=== PATIENT | male | born 1950 | race Caucasian/White ===

== ENCOUNTER 2022-06-07 19:11 | Observation (INO) ==
[2022-06-07 20:27] LABS: Bilirubin,Urine Negative (Negative); Blood,Urine Negative (Negative); Clarity,Urine Clear (Clear); Color,Urine Yellow (Yellow); Glucose,Urine (UA) Normal (Normal); Ketones,Urine Negative (Negative); Leukocyte Esterase,Urine Negative (Negative); Mucus,Urine Moderate per lpf (None-Few); Nitrite,Urine Negative (Negative); PH,Urine 5.5 pH Units (5.0-8.0); Protein,Urine 30 mg/dL (Neg-Trace); Specific Gravity,Urine 1.027 (1.010-1.025); Urobilinogen,Urine Normal (Normal); WBC,Urine 0-3 per hpf (0-3)
[2022-06-07 20:33] LABS: Basophils % 0.3 %; Hematocrit 49.1 % (37.5-50.1); Hemoglobin 16.8 g/dL (12.9-16.9); Immature Granulocytes % 0.4 % (0-4); Lymphocytes # 0.8 K/mcL (0.6-4.6); Lymphocytes % 5.2 %; Mean Corpuscular HGB Conc 34.2 g/dL (31.6-35.5); Mean Corpuscular Hemoglobin 29.8 pg (28.0-33.3); Mean Corpuscular Volume 87.2 fL (83.0-100.0); Mean Platelet Volume 10.6 fL (9.4-12.4); Monocytes % 6.7 %; Neutrophils # 13.1 K/mcL (1.6-8.9); Platelet Count 149 K/mcL (140-400); Red Blood Count 5.63 M/mcL (4.19-5.50); Red Cell Distribution Width 13.7 % (11.5-14.5); Segmented Neutrophils % 87.4 %
[2022-06-07] MEDS ORDERED: 0.9 % Sodium Chloride 1,000 ML IV ONE (20:39)
[2022-06-07] MEDS ORDERED: Ondansetron 4 MG/2 ML VIAL IVP STA (20:39)
[2022-06-07] MEDS ORDERED: Iopamidol - 370 500 ML MLS IVP ONE (20:39)
[2022-06-07] MEDS ORDERED: Morphine Sulfate 2 MG/ML SYRINGE IVP ONE (20:39)
[2022-06-07 20:54] LABS: Albumin 4.6 g/dL (3.5-5.7); Albumin/Globulin Ratio 1.4 (1.1-2.2); Bilirubin,Direct 0.1 mg/dL (0.0-0.2); Bilirubin,Indirect 0.7 mg/dL (0.0-1.0); Bilirubin,Total 0.8 mg/dL (0.3-1.0); Calcium 9.4 mg/dL (8.6-10.3); Globulin 3.3 g/dL (2.4-3.5); Potassium 3.8 mEq/L (3.5-5.1); Total Protein 7.9 g/dL (6.4-8.9)
[2022-06-07] MEDS ORDERED: Ondansetron ODT 4 MG TAB.RAPDIS SL PRN (23:48)
[2022-06-07] MEDS ORDERED: Naloxone 0.4 MG/ML INJ IVP PRN (23:48)
[2022-06-07] MEDS ORDERED: Melatonin 3 MG TABLET PO PRN (23:48)
[2022-06-08] MEDS ORDERED: 0.9 % Sodium Chloride 1,000 ML IVC SCH (00:30)
[2022-06-08] MEDS ORDERED: Ondansetron 4 MG/2 ML VIAL IVP PRN ×2 (00:33→17:24)
[2022-06-08] MEDS ORDERED: Morphine Sulfate 2 MG/ML SYRINGE IVP PRN (02:00)
[2022-06-08] MEDS: Piperacillin/Tazobactam 3.375 GM in 0.9 % Sodium Chloride Mini Bag 100 ML IVPB SCH ×3 (02:50→20:24)
[2022-06-08 05:36] LABS: Basophils % 0.3 %; Eosinophils # 0.1 K/mcL (0.0-0.6); Eosinophils % 0.5 %; Hematocrit 42.2 % (37.5-50.1); Immature Granulocytes % 0.3 % (0-4); Lymphocytes # 1.3 K/mcL (0.6-4.6); Lymphocytes % 10.7 %; Mean Corpuscular HGB Conc 33.9 g/dL (31.6-35.5); Mean Corpuscular Hemoglobin 29.7 pg (28.0-33.3); Mean Corpuscular Volume 87.7 fL (83.0-100.0); Mean Platelet Volume 10.2 fL (9.4-12.4); Monocytes # 1.3 K/mcL (0.0-1.3); Monocytes % 11.2 %; Neutrophils # 9.2 K/mcL (1.6-8.9); Platelet Count 133 K/mcL (140-400); Red Blood Count 4.81 M/mcL (4.19-5.50); Red Cell Distribution Width 14.1 % (11.5-14.5); White Blood Count 11.9 K/mcL (4.3-11.1)
[2022-06-08 05:41] LABS: Hemoglobin 14.3 g/dL (12.9-16.9)
[2022-06-08 05:53] LABS: Albumin 3.9 g/dL (3.5-5.7); Albumin/Globulin Ratio 1.6 (1.1-2.2); Bilirubin,Direct 0.2 mg/dL (0.0-0.2); Bilirubin,Indirect 0.9 mg/dL (0.0-1.0); Bilirubin,Total 1.1 mg/dL (0.3-1.0); Globulin 2.5 g/dL (2.4-3.5); Total Protein 6.4 g/dL (6.4-8.9)
[2022-06-08 05:55] LABS: Calcium 8.5 mg/dL (8.6-10.3); Magnesium 1.8 mg/dL (1.6-2.6)
[2022-06-08] MEDS: Pantoprazole 40 MG VIAL IVP SCH (08:57)
[2022-06-08] MEDS ORDERED: Lidocaine HCL 4 ML Topical Solution (Laryng-O-Jet Kit Sterile Pak) TP ONE (15:52)
[2022-06-08] MEDS ORDERED: *HR* Succinylcholine 200 MG/10 ML VIAL IVP ONE (15:52)
[2022-06-08] MEDS ORDERED: Lidocaine -MPF 2% 2 ML VIAL ONE ×2 (15:52)
[2022-06-08] MEDS ORDERED: Ondansetron 4 MG/2 ML VIAL ONE (15:52)
[2022-06-08] MEDS ORDERED: *HR* Propofol 200 MG/20 ML VIAL IVP ONE (15:52)
[2022-06-08] MEDS ORDERED: *HR* Rocuronium Bromide 50 MG/5 ML VIAL ONE (15:52)
[2022-06-08] MEDS ORDERED: *HR* FentaNYL (PF) 100 MCG/2 ML VIAL ONE (15:52)
[2022-06-08] MEDS ORDERED: Famotidine 20 MG/2 ML VIAL ONE (16:29)
[2022-06-08] MEDS ORDERED: Sugammadex Sodium 200 MG/2 ML VIAL IV ONE (17:02)
[2022-06-08] MEDS ORDERED: *HR* HYDROmorphone (PF) 1 MG/ML SYRINGE IVP PRN (17:24)
[2022-06-08] MEDS ORDERED: *HR* Labetalol 20 MG/4 ML SYRINGE IVP PRN (17:24)
[2022-06-08] MEDS ORDERED: Ketorolac 30 MG/ML VIAL IVP PRN (17:24)
[2022-06-08] MEDS ORDERED: *HR* HYDROmorphone 2 MG TABLET PO PRN (17:24)
[2022-06-08] MEDS ORDERED: Promethazine 6.25 MG in Water for inj. (sterile) 20 ML IVPB PRN (17:24)
[2022-06-08] MEDS ORDERED: *HR* OxyCODONE Immed Rel 5 MG TABLET PO PRN (17:24)
[2022-06-08] MEDS ORDERED: Pregabalin 75 MG CAPSULE PO ONE (17:24)
[2022-06-08] MEDS ORDERED: Acetaminophen IV 1,000 MG/100 ML BAG IVPB ONE (18:15)
[2022-06-09] MEDS: Piperacillin/Tazobactam 3.375 GM in 0.9 % Sodium Chloride Mini Bag 100 ML IVPB SCH (04:10)
[2022-06-09 04:28] LABS: Hematocrit 44.1 % (37.5-50.1); Lymphocytes # 0.5 K/mcL (0.6-4.6); Lymphocytes % 5.5 %
[2022-06-09 04:30] LABS: Basophils % 0.1 %; Hemoglobin 15.1 g/dL (12.9-16.9); Immature Granulocytes % 0.6 % (0-4); Immature Platelets 4.7 % (1.1-6.1); Mean Corpuscular HGB Conc 34.2 g/dL (31.6-35.5); Mean Corpuscular Hemoglobin 30.1 pg (28.0-33.3); Mean Corpuscular Volume 87.8 fL (83.0-100.0); Mean Platelet Volume 10.9 fL (9.4-12.4); Monocytes # 0.4 K/mcL (0.0-1.3); Monocytes % 4.2 %; Neutrophils # 8.1 K/mcL (1.6-8.9); Platelet Count 120 K/mcL (140-400); Red Blood Count 5.02 M/mcL (4.19-5.50); Red Cell Distribution Width 13.9 % (11.5-14.5); Segmented Neutrophils % 89.6 %
[2022-06-09 04:43] LABS: Calcium 8.7 mg/dL (8.6-10.3); Potassium 3.5 mEq/L (3.5-5.1)
[2022-06-09 07:51] VITALS: BP 126/66; PULSE 91; TEMP 99.7; O2SAT 95
[2022-06-09] MEDS: Pantoprazole 40 MG VIAL IVP SCH (08:21)
[2022-06-09] MEDS ORDERED: Valsartan 160 MG TABLET PO SCH (09:00)
[2022-06-09] MEDS ORDERED: amLODIPine 5 MG TABLET PO SCH (09:00)
[2022-06-09] MEDS ORDERED: hydroCHLOROthiazide 25 MG TABLET PO SCH (09:00)
== END 2022-06-09 11:55 | disposition home or self-care (01) ==
LOC: EMEROOARM 19:11 → 3BNU 19:11
PROVIDERS: ADMIT Internal Medicine; ATTEND Internal Medicine